=== PATIENT | female | born 1980 | race Caucasian/White ===

== ENCOUNTER 2017-08-16 16:51 | Emergency (ER) | payer OTHER ==
[2017-08-16] MEDS ORDERED: SODIUM CHLORIDE 0.9% 1,000 ML IV ONE ×2 (17:17)
[2017-08-16] MEDS ORDERED: ACETAMINOPHEN 1,000 MG/100 ML 100 ML IV STA (17:17)
[2017-08-16] MEDS ORDERED: ONDANSETRON 4 MG/2 ML VIAL IVP STA (17:17)
--- NOTE | 2017-08-16 17:29 | ED Physician Documentation ---
PD HPI ABD PAIN - Stated complaint Stated Complaint: ABD PX - Chief complaint Chief Complaint: Abd Pain - History obtained from History obtained from: Patient - History of Present Illness Timing - onset: How many weeks ago (1) Timing - duration: Weeks (1) Timing - details: Gradual onset Pain level max: 8 Pain level now: 8 Quality: Pain Location: RLQ Radiation: Other (non-radiating) Improved by: Laying still Worsened by: Moving Associated symptoms: Nausea, Diarrhea, Constipation. No: Fever, Vomiting, Hematemesis, Melena, Hematochezia, Dysuria, Hematuria, Vaginal bleeding, Vaginal dc Similar symptoms before: Has not had sx before Recently seen: Clinic (states recently seen in clinic for same. states she thinks the CT at [facility] was normal. LMP was 2 weeks ago.) Review of Systems Constitutional: denies: Fever Ears: denies: Ear pain Nose: denies: Rhinorrhea / runny nose, Congestion Cardiac: denies: Chest pain / pressure : denies: Dysuria, Frequency, Hesitancy, Discharge, Now EGA Skin: denies: Rash Musculoskeletal: denies: Neck pain, Back pain Neurologic: denies: Headache PD PAST MEDICAL HISTORY - Past Medical History Cardiovascular: None Respiratory: None Neuro: Headache/migraine Endocrine/Autoimmune: None GI: Diverticulitis : None HEENT: None Psych: None Musculoskeletal: Fibromyalgia Derm: None - Past Surgical History Past Surgical History: No General: Colonoscopy - Present Medications Home Medications: Ambulatory Orders Medication Instructions Recorded Confirmed Hyoscyamine Sulfate [Levsin-Sl] 0.125 mg SL Q6H PRN #20 tab.subl 08/16/17 Oxycodone HCl/Acetaminophen 1 - 2 each PO Q6H PRN #10 tablet 08/16/17 [Percocet 5-325 mg Tablet] - Allergies Allergies/Adverse Reactions: Allergies Allergy/AdvReac Type Severity Reaction Status Date / Time hydrocodone bitartrate * AdvReac Intermediate Hives Verified 08/16/17 17:02 [From Vicodin] codiene AdvReac Intermediate Hallucinati Uncoded 06/16/15 19:48 ons - Social History Does the pt smoke?: No Smoking Status: Never smoker Does the pt drink ETOH?: No Does the pt have substance abuse?: No - Immunizations Immunizations are current?: Yes - POLST Patient has POLST: No PD ED PE NORMAL - Vitals Vital signs reviewed: Yes - General General: Alert and oriented X 3, Other (appears uncomfortable walking to the bed ) - HEENT HEENT: PERRL, Moist mucous membranes - Neck Neck: Supple, no meningeal sign - Cardiac Cardiac: RRR, Strong equal pulses - Respiratory Respiratory: No respiratory distress, Clear bilaterally - Abdomen Abdomen: Soft, Non distended, Other (TTP at McBurney's point. No rebound. + psoas and obturator signs. 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 no CMT. thin clear d/c. no massess) - Back Back: No CVA TTP, No spinal TTP - Derm Derm: Warm and dry - Neuro Neuro: Alert and oriented X 3 - Psych Psych: Normal mood, Normal affect Results - Vitals Vitals: Vital Signs - 24 hr 08/16/17 08/16/17 08/16/17 16:57 17:05 20:20 Temperature 36.7 C Heart Rate 99 68 60 Respiratory 16 16 16 Rate Blood Pressure 135/83 H 142/93 H 111/82 H O2 Saturation 100 98 99 Oxygen O2 Source Room air - Labs Labs: Microbiology 08/16/17 19:05 Wet Prep - Final Vaginal 08/16/17 19:05 MESERET Preparation - Final Other - Vaginal Laboratory Tests 08/16/17 08/16/17 08/16/17 17:31 17:31 17:51 WBC 10.4 RBC 4.35 Hgb 13.8 Hct 40.8 MCV 93.9 MCH 31.8 H MCHC 33.9 RDW 12.5 Plt Count 307 MPV 9.0 Neut # 7.9 H Lymph # 1.7 Culberson # 0.6 Eos # 0.1 Baso # 0.1 Absolute Nucleated RBC 0.00 Nucleated RBC % 0.0 Sodium 142 Potassium 3.6 Chloride 101 Carbon Dioxide 26 Anion Gap 15.0 H BUN 18 Creatinine 1.1 H Estimated GFR (MDRD) 57 L Glucose 94 Calcium 10.1 Total Bilirubin 0.4 AST 18 ALT 14 Alkaline Phosphatase 86 Total Protein 8.3 H Albumin 4.9 Globulin 3.4 Albumin/Globulin Ratio 1.4 Lipase 24 Urine Color YELLOW Urine Clarity CLEAR Urine pH 7.5 Ur Specific Langtry 1.020 Urine Protein NEGATIVE Urine Glucose (UA) NEGATIVE Urine Ketones NEGATIVE Urine Occult Blood NEGATIVE Urine Nitrite NEGATIVE Urine Bilirubin NEGATIVE Urine Urobilinogen 0.2 (NORMAL) Ur Leukocyte Esterase NEGATIVE Ur Microscopic Review NOT INDICATED Urine Culture Comments NOT INDICATED Urine HCG, Qual NEGATIVE - Rads (name of study) CT abd/pelvis Radiology: Prelim report reviewed, EMP read contemporaneously, See rad report ( Negative CT of the abdomen and pelvis. No acute solid or hollow viscus organ abnormalities to account for the patient's presentation. There is no evidence of bowel obstruction or appendicitis. ) PD MEDICAL DECISION MAKING - ED course Complexity details: reviewed results, re-evaluated patient, considered differential, d/w patient ED course: Patient is a 37-year-old female who presents to the emergency department with abdominal pain of unclear etiology. She is very tender in the right lower quadrant at McBurney's point, therefore CT was performed, no evidence of acute appendicitis. Normal ovaries. Pelvic exam does not reveal any acute abnormalities. She states that she did have some diarrhea and then "jaret like" stools. Referring to texture, not color. There is a family history of IBS. Possible that she has IBS as well versus inflammatory bowel disease. Recommend that she follow-up with her doctor for further evaluation and care. Pain well controlled. Patient is well-appearing, nontoxic. Afebrile. Tolerating p.o. without difficulty. Patient does not have any risk factors for sexually transmitted infection. No evidence of PID. Patient counseled regarding signs and symptoms for which I believe and urgent re-evaluation would be necessary. Patient with good understanding of and agreement to plan and is comfortable going home at this time This document was made in part using voice recognition software. While efforts are made to proofread this document, sound alike and grammatical errors may occur. Departure - Departure Disposition: Home, Self Care Clinical Impression: Abdominal pain Qualifiers: Abdominal location: right lower quadrant Qualified Code(s): R10.31 - Right lower quadrant pain Condition: Good Instructions: ED Abdominal Pain Unkn Cause Follow-Up: your,doctor in 3 days [Other] Prescriptions: Hyoscyamine Sulfate [Levsin-Sl] 0.125 mg SL Q6H PRN #20 tab.subl PRN Reason: Abdominal Pain Oxycodone HCl/Acetaminophen [Percocet 5-325 mg Tablet] 1 - 2 each PO Q6H PRN # 10 tablet PRN Reason: pain Comments: The cause of your symptoms is unclear today. Return if you worsen. You should follow-up with your doctor as you may need a referral to a tie binder to be evaluated for irritable bowel syndrome versus inflammatory bowel disease. Do not drink alcohol or drive while on narcotic pain medicine. Note that many narcotic pain relievers also contain tylenol/acetaminophen. Please ensure that your total dose of acetaminophen from all sources does not exceed 3 grams (3000mg) per day. You may constipated on this medication, take a stool softener such as "Colace" twice a day while you are on it. Also recommend a [id number] laxative such as senna or MiraLAX any day that you do not have a bowel movement. If you received narcotic pain medication in the emergency department, do not drive or operate machinery for the next 24 hours. Discharge Date/Time: 08/16/17 20:20
[2017-08-16 17:41] LABS: BASOPHILS # (AUTO) 0.1 10^3/uL (0.0-0.1); BASOPHILS % (AUTO) 0.8 %; EOSINOPHILS # (AUTO) 0.1 10^3/uL (0.0-0.7); EOSINOPHILS % (AUTO) 0.8 %; HCT - HEMATOCRIT 40.8 % (37.0-47.0); HGB - HEMOGLOBIN 13.8 g/dL (12.0-16.0); LYMPHOCYTES # (AUTO) 1.7 10^3/uL (1.5-3.5); LYMPHOCYTES % (AUTO) 16.4 %; MEAN CORPUSCULAR HEMOGLOBIN 31.8 pg (27.0-31.0); MEAN CORPUSCULAR HGB CONC 33.9 g/dL (32.0-36.0); MEAN CORPUSCULAR VOLUME 93.9 fL (81.0-99.0); MONOCYTES # (AUTO) 0.6 10^3/uL (0.0-1.0); MONOCYTES % (AUTO) 6.2 %; NEUTROPHILS # (AUTO) 7.9 10^3/uL (1.5-6.6); NEUTROPHILS % (AUTO) 75.8 %; RED BLOOD COUNT 4.35 10^6/uL (4.20-5.40); RED CELL DISTRIBUTION WIDTH 12.5 % (12.0-15.0); UNCORRECTED WHITE BLOOD COUNT 10.4 x10^3/uL; WHITE BLOOD COUNT 10.4 x10^3/uL (4.8-10.8)
[2017-08-16 17:52] LABS: ALBUMIN/GLOBULIN RATIO 1.4 (1.0-2.2); BILIRUBIN,TOTAL 0.4 mg/dL (0.2-1.0); CALCIUM 10.1 mg/dL (8.5-10.3); CREATININE 1.1 mg/dL (0.4-1.0); POTASSIUM 3.6 mmol/L (3.5-5.0); TOTAL PROTEIN 8.3 g/dL (6.7-8.2)
[2017-08-16] MEDS ORDERED: IOPAMIDOL-300 100 ML VIAL ONE (18:05)
[2017-08-16 18:10] LABS: BILIRUBIN,URINE NEGATIVE (NEGATIVE); PH,URINE 7.5 PH (5.0-7.5)
[2017-08-16 18:12] LABS: HCG UR QUAL NEGATIVE; UA CHARGE (STRIP ONLY) YES; UR CULTURE IF IND NOT INDICATED
[2017-08-16] MEDS ORDERED: IOPAMIDOL-300 100 ML VIAL IVP ONE (18:28)
--- NOTE | 2017-08-16 18:42 | CT Preliminary Report ---
Exam: CT ABDOMEN/PELVIS W/ IMPRESSION: Negative CT of the abdomen and pelvis. No acute solid or hollow viscus organ abnormalitie s to account for the patient's presentation. There is no evidence of bowel obstruction or appendiciti s. [facility] SITE ID: [id number]
--- NOTE | 2017-08-16 18:44 | CT Report ---
EXAM: CT ABDOMEN AND PELVIS EXAM DATE: 08/16/2017 06:28 PM. CLINICAL HISTORY: RLQ abd pain. COMPARISONS: 06/16/2015. TECHNIQUE: Routine helical CT imaging was performed through the abdomen and pelvis. IV contrast: 100M L OF ISOVUE 300. Enteric contrast: No. Reconstructions: Coronal and sagittal. In accordance with CT protocol optimization, one or more of the following dose reduction techniques w ere utilized for this exam: automated exposure control, adjustment of mA and/or KV based on patient s ize, or use of iterative reconstructive technique. FINDINGS: Lung Bases: Unremarkable. Liver: Normal. No masses. Gallbladder/Bile Ducts: Unremarkable. Spleen: Normal. Pancreas: Normal. Adrenal Glands: Normal. Kidneys: Normal. No masses or hydronephrosis. Peritoneal Cavity/Bowel: No dilated or thick-walled bowel is seen. There is a duodenal diverticulum. There are scattered colonic diverticula. No intraperitoneal free air or free fluid. No enlarged mesen teric or retroperitoneal lymph nodes. The appendix is well visualized and normal. Pelvic Organs: Stable small left vaginal cyst. The bladder and visualized pelvic organs are within no rmal limits. Vasculature: No aneurysms or other significant abnormality. Bones: No significant abnormality. Other: None. IMPRESSION: Negative CT of the abdomen and pelvis. No acute solid or hollow viscus organ abnormalitie s to account for the patient's presentation. There is no evidence of bowel obstruction or appendiciti s. [facility] Referring Provider Line: [phone] SITE ID: [id number]
[2017-08-16] MEDS ORDERED: HYOSCYAMINE SL 0.125 MG TABLET SL STA (19:09)
[2017-08-16] MEDS ORDERED: oxyCODONE/ACET 5/325 Prepack 4 PO STA (20:05)
[2017-08-16 20:21] VITALS: BP 111/82
== END 2017-08-16 20:20 | disposition home or self-care (01) ==
LOC: ED 16:51
DX: R10.31 Right lower quadrant pain (principal); Z83.79 Family history of other diseases of the digestive system
CPT/HCPCS: 36415; 74177; 80053; 81003; 81025; 83690; 85025; 87210; 87220; 96361; 96365; 96375; 99283; A9270; J0131; Q9967; 81001; 87086

== ENCOUNTER 2019-06-19 16:12 | Outpatient (CLI) | payer OTHER ==
--- NOTE | 2019-06-20 17:55 | MRI Report ---
Reason: PAIN IN RIGHT SHOULDER Procedure Date: 06/19/2019 Accession Number: [id number] / [id number] Procedure: MRI - Shoulder RT W/O CPT Code: FULL RESULT: EXAM: RIGHT SHOULDER MRI WITHOUT CONTRAST EXAM DATE: 06/19/2019 04:50 PM. CLINICAL HISTORY: Pain in the right shoulder. Many push-ups. COMPARISON: None. TECHNIQUE: Multiplanar, multisequence T1-weighted and fluid-sensitive sequences of the shoulder without contrast. Other: None. FINDINGS: Acromioclavicular Region: The acromion is type II. The acromioclavicular joint is unremarkable. The coracoacromial and coracoclavicular ligaments are intact. No subacromial/subdeltoid bursal fluid. Glenohumeral Region: No subluxation. No effusion or loose bodies. The articular cartilage is unremarkable. Bone Marrow: No fracture, marrow edema or bone lesions. Labrum: The labrum is unremarkable on this nonarthrographic study. Musculature/Rotator Cuff: The subscapularis, supraspinatus, infraspinatus, and teres minor tendons are intact. No edema or fatty atrophy. Biceps Tendon: The long head of the biceps tendon and biceps liliane are intact. Other: The subcutaneous tissues are unremarkable. IMPRESSION: No MRI abnormalities in the shoulder. [facility]
== END 2019-06-19 16:13 | disposition home or self-care (01) ==
LOC: DI 16:12
PROVIDERS: ATTEND Family Medicine
DX: M25.511 Pain in right shoulder (principal)